=== PATIENT | male | born 1955 | race American Indian/Alaskan Native ===

== ENCOUNTER 2018-09-03 16:45 | Inpatient (IN) | payer MEDICARE ==
[2018-09-03] MEDS ORDERED: ASPIRIN PO ONE (16:55)
--- NOTE | 2018-09-03 16:58 | Emergency Department Report ---
Blank Doc - Documentation Documentation: 62 Y/O OBESE AA MALE WITH PMH OF HTN, CHF, CAD REPORTS 2+ WEEKS OF PROGRESSIVELY WORSENING WEIGHT GAIN AND SOB AND NOW CHEST ACHES.
[2018-09-03 17:38] LABS: Basophils # (Auto) 0.1 K/mm3 (0.0-0.1); Basophils % (Auto) 0.7 % (0.0-1.8); Eosinophils # (Auto) 0.1 K/mm3 (0.0-0.4); Eosinophils % (Auto) 0.7 % (0.0-4.3); Hematocrit 39.4 % (35.5-45.6); Lymphocytes # (Auto) 1.3 K/mm3 (1.2-5.4); Lymphocytes % (Auto) 12.3 % (13.4-35.0); Mean Corpuscular HGB Conc 33 % (32-34); Mean Corpuscular Volume 96 fl (84-94); Monocytes # (Auto) 0.6 K/mm3 (0.0-0.8); Monocytes % (Auto) 6.2 % (0.0-7.3); Platelet Count 196 K/mm3 (140-440); Red Blood Count 4.11 M/mm3 (3.65-5.03); Red Cell Distribution Width 14.4 % (13.2-15.2)
[2018-09-03 18:08] LABS: Alanine Aminotransferase 14 units/L (7-56); Albumin 3.2 g/dL (3.9-5); BUN/Creatinine Ratio 12; Blood Urea Nitrogen 11 mg/dL (9-20); Calcium 9.1 mg/dL (8.4-10.2); Hemolysis Index 33
--- NOTE | 2018-09-03 18:30 | XRay Report ---
PROCEDURE: XR CHEST ROUTINE 2V TECHNIQUE: PA and lateral chest HISTORY: Chest Pain COMPARISONS: None FINDINGS: Trachea midline. Prominent cardiomegaly. No pneumothorax. No sizable effusion. Mild vascular redistri bution. No acute airspace disease. No acute bony abnormality. IMPRESSION: Prominent cardiomegaly. Vascular redistribution. Findings compatible with mild pulmonary congestion No consolidation or sizable effusion. This document is electronically signed by Chato Salazar MD., Sep 03 2018 06:28:38 PM ET
[2018-09-03] MEDS ORDERED: NITROSTAT SL PRN (22:34)
[2018-09-03] MEDS ORDERED: TYLENOL PO ONE (22:34)
[2018-09-03] MEDS ORDERED: LASIX IV ONE (22:34)
--- NOTE | 2018-09-03 22:35 | Emergency Department Report ---
ED General Adult HPI - General Chief complaint: Dyspnea/Respdistress Stated complaint: SOB/CONGESTIVE HEART FAILURE Time Seen by Provider: 09/03/18 16:49 Source: patient, RN notes reviewed, old records reviewed Mode of arrival: Ambulatory Limitations: Physical Limitation - History of Present Illness Initial comments: Primary care Dr.: Dr. Lin Pulmonary: Dr Campa Past medical history: Morbid obesity, obstructive sleep apnea, hypertension, noncompliant with CPAP This is a 62-year-old gentleman. The patient presents to the emergency room with cough, shortness of breath, lower extremity swelling, malaise, fatigue, lack of energy. He endorses central chest wall pain with cough. The chest wall pain is present with cough, and it does not radiate to the back, arms or neck. He last had chest wall pain one week ago. His leg pain is bilateral and achy, constant, worsens with palpation and decreases with rest. He endorses a recent airplane trip to [place], less than 2 hours. His leg pain was present before this trip, and has not significantly changed after this trip. He denies recent surgeries. Intermittent compliance with outpatient medications. No recent cardiac stress test that he is aware of. -: Gradual Location: chest, left, right, upper extremity, lower extremity Consistency: intermittent Improves with: other (chest wall pain associated with cough. Decreases with rest. It increases with palpation. Leg pain bilateral. Increases with palpation, range of motion. Decreases with rest. Does not radiate anywhere.) - Related Data Home Medications Medication Instructions Recorded Confirmed Last Taken Carvedilol [Coreg] 12.5 mg PO BID 12/09/14 12/09/14 12/09/14 Furosemide [Lasix TAB] 40 mg PO QDAY 12/09/14 12/09/14 12/09/14 Valsartan/Hydrochlorothiazide 1 tab PO QDAY 12/09/14 12/09/14 12/09/14 [Diovan Hct 160-12.5 mg] Previous Rx's Medication Instructions Recorded Last Taken Type Docusate Sodium [Colace CAP] 100 mg PO BID PRN #20 capsule 12/10/14 Unknown Rx Famotidine [Pepcid] 10 mg PO BID #20 tablet 12/10/14 Unknown Rx Magnesium Citrate [Citrate of 300 ml PO NOW #1 bottle 12/10/14 Unknown Rx Magnesia] Allergies Allergy/AdvReac Type Severity Reaction Status Date / Time shellfish derived AdvReac Severe RESPIRATORY Verified 12/09/14 23:39 DISTRESS ED Review of Systems ROS: Stated complaint: SOB/CONGESTIVE HEART FAILURE Other details as noted in HPI Constitutional: malaise, weakness. denies: fever Eyes: denies: eye discharge ENT: congestion. denies: epistaxis Respiratory: cough, shortness of breath Cardiovascular: chest pain Gastrointestinal: denies: abdominal pain, nausea, vomiting Genitourinary: denies: dysuria Musculoskeletal: arthralgia, myalgia Skin: denies: lesions Neurological: weakness Psychiatric: anxiety ED Past Medical Hx - Past Medical History Previous Medical History?: Yes Hx Hypertension: Yes Hx Congestive Heart Failure: Yes Additional medical history: sleep apea (CPAP) - Surgical History Past Surgical History?: Yes Hx Coronary Stent: No Hx Open Heart Surgery: No Hx Pacemaker: No Hx Internal Defibrillator: No Hx Cholecystectomy: No Hx Appendectomy: No Hx Breast Surgery: No Additional Surgical History: Throat surgery, tonsilectomy - Social History Smoking Status: Never Smoker - Medications Home Medications: Home Medications Medication Instructions Recorded Confirmed Last Taken Type Carvedilol [Coreg] 12.5 mg PO BID 12/09/14 12/09/14 12/09/14 History Furosemide [Lasix TAB] 40 mg PO QDAY 12/09/14 12/09/14 12/09/14 History Valsartan/Hydrochlorothiazide 1 tab PO QDAY 12/09/14 12/09/14 12/09/14 History [Diovan Hct 160-12.5 mg] Docusate Sodium [Colace CAP] 100 mg PO BID PRN #20 capsule 12/10/14 Unknown Rx Famotidine [Pepcid] 10 mg PO BID #20 tablet 12/10/14 Unknown Rx Magnesium Citrate [Citrate of 300 ml PO NOW #1 bottle 12/10/14 Unknown Rx Magnesia] ED Physical Exam - General Limitations: Physical Limitation General appearance: alert, anxious, obese - Head Head exam: Present: atraumatic, normocephalic - Eye Eye exam: Present: normal appearance, EOMI. Absent: nystagmus - ENT ENT exam: Present: normal exam, normal orophraynx, mucous membranes moist, normal external ear exam - Neck Neck exam: Present: normal inspection, full ROM. Absent: tenderness, meningismus - Respiratory Respiratory exam: Present: chest wall tenderness, decreased breath sounds. Absent: respiratory distress, rales, rhonchi, stridor - Cardiovascular Cardiovascular Exam: Present: regular rate, normal rhythm, normal heart sounds. Absent: bradycardia, tachycardia, irregular rhythm, systolic murmur, diastolic murmur, rubs, gallop - GI/Abdominal GI/Abdominal exam: Present: soft. Absent: distended, tenderness, guarding, rebound, rigid, pulsatile mass - Rectal Rectal exam: Present: deferred - Extremities Exam Extremities exam: Present: normal inspection, full ROM, pedal edema, other (2+ pulses noted in the bilateral upper, lower extremities. Compartments soft. No long bony tenderness. The pelvis is stable.). Absent: calf tenderness - Back Exam Back exam: Present: normal inspection, full ROM. Absent: tenderness, CVA tenderness (R), paraspinal tenderness, vertebral tenderness - Neurological Exam Neurological exam: Present: alert, oriented X3, other (Extraocular movements intact. Tongue midline. No facial droop. Facial sensation intact to light touch in the V1, V2, V3 distribution bilaterally. 5 and 5 strength in 4 extremities.. Sensation is intact to light touch in 4 extremities.). Absent: motor sensory deficit - Psychiatric Psychiatric exam: Present: anxious - Skin Skin exam: Present: warm, dry, intact, normal color. Absent: rash ED Course Vital Signs 09/03/18 09/03/18 09/03/18 22:11 22:15 22:31 Pulse Rate 82 84 Respiratory 29 H 13 Rate Blood Pressure 132/76 132/76 132/76 O2 Sat by Pulse 94 95 96 Oximetry 09/03/18 09/03/18 22:45 23:01 Pulse Rate 74 Respiratory 20 Rate Blood Pressure 173/100 178/108 O2 Sat by Pulse 99 94 Oximetry ED Medical Decision Making - Lab Data Result diagrams: 09/03/18 17:26 09/03/18 17:07 - EKG Data -: EKG Interpreted by Wa - EKG Data 09/03/18 23:45 EKG shows a sinus rhythm, 78 bpm, normal axis, QTC prolonged, low voltage, motion artifact, immature atrial contractions, abdominal EKG, not consistent with ST elevation myocardial infarction, appears grossly unchanged from prior EKG from 04/01/2010 - Radiology Data Radiology results: report reviewed X-ray of the chest shows pulmonary vascular congestion, enlarged cardiac silhouette - Medical Decision Making Differential diagnosis, including not limited to: Obstructive sleep apnea, pulmonary hypertension, obesity hypoventilation syndrome, right-sided heart failure, costochondritis, GERD, gastritis, pneumonia, acute coronary syndrome Assessment and plan: 62-year-old morbidly obese gentleman, found to be hypoxic on room air, saturating 87, 88%, significant work of breathing, lower extremity edema, x-ray of the chest suggesting congestive heart failure, suspect worsening right-sided heart failure, likely secondary to multiple factors, including CPAP noncompliance and morbid obesity. Extensive discussion had with the patient and family. I have recommended compliance with CPAP, diet and lifestyle modifications and aggressive weight loss. Given his work of breathing and hypoxia, as well as objective evidence of right-sided heart failure and fluid overload, we will admit to the medical service for diuresis, medical optimization, and supplemental oxygen. The hospital physician, Dr. Lane has accepted the patient to the medical service. Critical care attestation.: If time is entered above; I have spent that time in minutes in the direct care of this critically ill patient, excluding procedure time. ED Disposition Clinical Impression: Right-sided heart failure, Shortness of breath, Chest wall pain, Morbid obesity, Noncompliance with CPAP treatment Disposition: -09 OP ADMIT IP TO THIS HOSP Is pt being admited?: Yes Condition: Fair Instructions: Chest Pain (ED) Referrals: PRIMARY CARE, [Primary Care Provider] - 3-5 Days
--- NOTE | 2018-09-03 23:49 | History and Physical Report ---
<RICKEY IZQUIERDO - Last Filed: 09/04/18 02:38> History of Present Illness Date of examination: 09/04/18 Date of admission: 09/04/2018 Chief complaint: Shortness of breath, cough for 2 months History of present illness: Patient is a 62-year-old male with PMHx of CHF, kidney disease, obstructive sleep apnea, hypertension, morbid obesity who presents to the ER with complaints of cough, shortness of breath and leg swelling. Patient states that the symptoms has been going on for the past 2 months, and kept getting worse, he has not been taking his BP meds because he was taking losartan which he heard can cause malignancy, he is afraid to take it and he has not seen his PCP. Patient said that the he had an appointment to see his taxation inspector next week but he decided to come to the ER today because the shortness of breath and the swelling got worse, he continues to cough and has a lot of difficulty breathing. Patient also reports shortness of breath on exertion, leg pain and swelling, palpation, he denies chest pain, denies headache, denies dizziness. Pt had a chest xray that showed cardiomegaly and mild pulmonary congestion, he is admitted for further evaluation and treatment. Past History Past Medical History: heart failure, hypertension, renal failure Past Surgical History: No surgical history Social history: no significant social history, lives with family Family history: no significant family history Medications and Allergies Allergies Allergy/AdvReac Type Severity Reaction Status Date / Time shellfish derived AdvReac Severe RESPIRATORY Verified 12/09/14 23:39 DISTRESS seafood Allergy Severe Angioedema Uncoded 09/04/18 00:15 Home Medications Medication Instructions Recorded Confirmed Last Taken Type Furosemide [Lasix TAB] 40 mg PO BID 12/09/14 09/04/18 12/09/14 History Active Meds: Active Medications Enoxaparin Sodium (Lovenox) 40 mg SUB-Q QDAY [facility] Nitroglycerin (Nitrostat) 0.4 mg SL .Q5MIN PRN PRN Reason: Chest Pain Review of Systems Cardiovascular: orthopnea, shortness of breath, leg edema Respiratory: cough, shortness of breath, sleep apnea Exam - Constitutional Vitals: Temp Pulse Resp BP Pulse Ox 74 20 178/108 94 09/03/18 22:45 09/03/18 22:45 09/03/18 23:01 09/03/18 23:01 General appearance: Present: mild distress - EENT Eyes: Present: EOM intact ENT: hearing intact - Neck Neck: Present: supple, normal ROM - Respiratory Respiratory effort: labored Respiratory: bilateral: diminished - Cardiovascular Rhythm: regular Heart Sounds: Present: S1 & S2 - Extremities Extremity abnormal: edema Peripheral Pulses: within normal limits - Abdominal General gastrointestinal: Present: non-tender Male genitourinary: Present: deferred - Rectal Rectal Exam: deferred - Integumentary Integumentary: Present: warm, dry - Musculoskeletal Musculoskeletal: strength equal bilaterally - Psychiatric Psychiatric: cooperative - Neurologic Neurologic: moves all extremities Results - Labs CBC & Chem 7: 09/03/18 17:26 09/04/18 01:09 Labs: Laboratory Last Values WBC 10.2 K/mm3 (4.5-11.0) 09/03/18 17:26 RBC 4.11 M/mm3 (3.65-5.03) 09/03/18 17:26 Hgb 13.0 gm/dl (11.8-15.2) 09/03/18 17:26 Hct 39.4 % (35.5-45.6) 09/03/18 17:26 MCV 96 fl (84-94) H 09/03/18 17:26 MCH 32 pg (28-32) 09/03/18 17:26 MCHC 33 % (32-34) 09/03/18 17:26 RDW 14.4 % (13.2-15.2) 09/03/18 17:26 Plt Count 196 K/mm3 (140-440) 09/03/18 17:26 Lymph % (Auto) 12.3 % (13.4-35.0) L 09/03/18 17:26 [place] % (Auto) 6.2 % (0.0-7.3) 09/03/18 17:26 Eos % (Auto) 0.7 % (0.0-4.3) 09/03/18 17:26 Baso % (Auto) 0.7 % (0.0-1.8) 09/03/18 17:26 Lymph # 1.3 K/mm3 (1.2-5.4) 09/03/18 17:26 [place] # 0.6 K/mm3 (0.0-0.8) 09/03/18 17:26 Eos # 0.1 K/mm3 (0.0-0.4) 09/03/18 17:26 Baso # 0.1 K/mm3 (0.0-0.1) 09/03/18 17:26 Seg Neutrophils % 80.1 % (40.0-70.0) H 09/03/18 17:26 Seg Neutrophils # 8.2 K/mm3 (1.8-7.7) H 09/03/18 17:26 Sodium 143 mmol/L (137-145) 09/03/18 17:07 Potassium 4.0 mmol/L (3.6-5.0) 09/03/18 17:07 Chloride 102.9 mmol/L (98-107) 09/03/18 17:07 Carbon Dioxide 28 mmol/L (22-30) 09/03/18 17:07 Anion Gap 16 mmol/L 09/03/18 17:07 BUN 11 mg/dL (9-20) 09/03/18 17:07 Creatinine 0.9 mg/dL (0.8-1.5) 09/03/18 17:07 Estimated GFR > 60 ml/min 09/03/18 17:07 BUN/Creatinine Ratio 12 % 09/03/18 17:07 Glucose 96 mg/dL (75-100) 09/03/18 17:07 Calcium 9.1 mg/dL (8.4-10.2) 09/03/18 17:07 Total Bilirubin 0.20 mg/dL (0.1-1.2) 09/03/18 17:07 AST 17 units/L (5-40) 09/03/18 17:07 ALT 14 units/L (7-56) 09/03/18 17:07 Alkaline Phosphatase 107 units/L (35-129) 09/03/18 17:07 Troponin T < 0.010 ng/mL (0.00-0.029) 09/03/18 19:31 NT-Pro-B Natriuret Pep 251.4 pg/mL (0-900) 09/03/18 17:07 Total Protein 7.5 g/dL (6.3-8.2) 09/03/18 17:07 Albumin 3.2 g/dL (3.9-5) L 09/03/18 17:07 Albumin/Globulin Ratio 0.7 % 09/03/18 17:07 Assessment and Plan Assessment and plan: 1. CHF with acute exacerbation (EF unknown) 2. Acute dyspnea 3. HTN (BP stable) 4. Kidney disease 5. Morbid Obesity Plan: Pt is admitted to [facility] for CHF exacerbation Consult cardiology for management Echocardiogram Lasix 40 twice a day for CHF Daily weight, fluid restriction Cough supressent with tessalon perle CHF core measures with ASP, Beta gabriel, Lasix, statin Resume home meds Plan of care was d/w pt, voiced understanding Pt's condition and plan of care of care discussed Dr. Lane Advance Directives: Yes VTE prophylaxis?: Chemical Plan of care discussed with patient/family: Yes <SILVESTRE LANE - Last Filed: 09/04/18 05:02> History of Present Illness Date of admission: 09/03/18 23:25 Medications and Allergies Active Meds: Active Medications Aspirin (Baby Aspirin) 81 mg PO QDAY [facility] Enoxaparin Sodium (Lovenox) 40 mg SUB-Q QDAY [facility] Furosemide (Lasix) 40 mg IV Q12HR [facility] Stop: 09/05/18 22:01 Hydralazine HCl (Apresoline) 10 mg IV Q4H PRN PRN Reason: Hypertension Lisinopril (Zestril) 2.5 mg PO QDAY [facility] Metoprolol Tartrate (Lopressor) 25 mg PO BID@0800,1700 [facility] Nitroglycerin (Nitrostat) 0.4 mg SL .Q5MIN PRN PRN Reason: Chest Pain Exam - Constitutional Vitals: Temp Pulse Resp BP Pulse Ox 98.2 F 67 19 160/86 94 09/04/18 01:17 09/04/18 01:17 09/04/18 01:17 09/04/18 01:17 09/04/18 01:17 Results - Labs CBC & Chem 7: 09/03/18 17:26 09/04/18 01:09 Labs: Laboratory Last Values WBC 10.2 K/mm3 (4.5-11.0) 09/03/18 17:26 RBC 4.11 M/mm3 (3.65-5.03) 09/03/18 17:26 Hgb 13.0 gm/dl (11.8-15.2) 09/03/18 17:26 Hct 39.4 % (35.5-45.6) 09/03/18 17:26 MCV 96 fl (84-94) H 09/03/18 17:26 MCH 32 pg (28-32) 09/03/18 17:26 MCHC 33 % (32-34) 09/03/18 17:26 RDW 14.4 % (13.2-15.2) 09/03/18 17:26 Plt Count 196 K/mm3 (140-440) 09/03/18 17:26 Lymph % (Auto) 12.3 % (13.4-35.0) L 09/03/18 17:26 [place] % (Auto) 6.2 % (0.0-7.3) 09/03/18 17:26 Eos % (Auto) 0.7 % (0.0-4.3) 09/03/18 17:26 Baso % (Auto) 0.7 % (0.0-1.8) 09/03/18 17:26 Lymph # 1.3 K/mm3 (1.2-5.4) 09/03/18 17:26 [place] # 0.6 K/mm3 (0.0-0.8) 09/03/18 17:26 Eos # 0.1 K/mm3 (0.0-0.4) 09/03/18 17:26 Baso # 0.1 K/mm3 (0.0-0.1) 09/03/18 17:26 Seg Neutrophils % 80.1 % (40.0-70.0) H 09/03/18 17:26 Seg Neutrophils # 8.2 K/mm3 (1.8-7.7) H 09/03/18 17:26 Sodium 143 mmol/L (137-145) 09/04/18 01:09 Potassium 3.6 mmol/L (3.6-5.0) 09/04/18 01:09 Chloride 102.8 mmol/L (98-107) 09/04/18 01:09 Carbon Dioxide 26 mmol/L (22-30) 09/04/18 01:09 Anion Gap 18 mmol/L 09/04/18 01:09 BUN 11 mg/dL (9-20) 09/04/18 01:09 Creatinine 0.9 mg/dL (0.8-1.5) 09/04/18 01:09 Estimated GFR > 60 ml/min 09/04/18 01:09 BUN/Creatinine Ratio 12 % 09/04/18 01:09 Glucose 100 mg/dL (75-100) 09/04/18 01:09 POC Glucose 90 (70-105) 09/04/18 00:06 Calcium 9.2 mg/dL (8.4-10.2) 09/04/18 01:09 Magnesium 1.90 mg/dL (1.7-2.3) 09/04/18 01:09 Total Bilirubin 0.20 mg/dL (0.1-1.2) 09/03/18 17:07 AST 17 units/L (5-40) 09/03/18 17:07 ALT 14 units/L (7-56) 09/03/18 17:07 Alkaline Phosphatase 107 units/L (35-129) 09/03/18 17:07 Troponin T < 0.010 ng/mL (0.00-0.029) 09/03/18 19:31 NT-Pro-B Natriuret Pep 251.4 pg/mL (0-900) 09/03/18 17:07 Total Protein 7.5 g/dL (6.3-8.2) 09/03/18 17:07 Albumin 3.2 g/dL (3.9-5) L 09/03/18 17:07 Albumin/Globulin Ratio 0.7 % 09/03/18 17:07 Assessment and Plan Assessment and plan: This is a 62-year-old male with a history of CHF, hypertension, GERD, sleep apnea, morbid obesity diverticulitis was been having shortness of breath times approximately 2 months. He also complained of nonproductive cough that occurs when he eat, he sometimes feels that the food is getting stuck 2 months, he also cough when drinking water. The patient states that he also gets chest pain when he feels like food is getting stuck, he also gets chest pain not related to food sometimes. Patient is in the left substernal area, sharp lasted for a few seconds, he is not sure if it radiates. He just came back from a trip from [place]. Agree with plan as discussed above for CHF management, also start REBECCA inhibitor. Check d-dimer, consult GI for dysphagia
[2018-09-04] MEDS ORDERED: APRESOLINE IV ONE (00:07)
[2018-09-04] MEDS ORDERED: APRESOLINE ONE (00:12)
[2018-09-04 02:07] LABS: BUN/Creatinine Ratio 12; Blood Urea Nitrogen 11 mg/dL (9-20); Calcium 9.2 mg/dL (8.4-10.2); Hemolysis Index 4
[2018-09-04] MEDS: APRESOLINE IV PRN (05:27)
[2018-09-04] MEDS: LOPRESSOR PO SCH ×2 (08:35→18:16)
[2018-09-04] MEDS: LASIX IV SCH ×3 (09:47→23:12)
[2018-09-04] MEDS: LOVENOX SUB-Q SCH (09:48)
[2018-09-04] MEDS: ZESTRIL PO SCH (09:48)
[2018-09-04] MEDS: BABY ASPIRIN PO SCH (09:48)
[2018-09-04] MEDS ORDERED: K-DUR PO SCH (10:00)
[2018-09-04] MEDS ORDERED: APRESOLINE PO SCH (10:00)
[2018-09-04] MEDS ORDERED: ALDACTONE PO SCH (10:00)
--- NOTE | 2018-09-04 13:15 | Consultation ---
History of Present Illness Consult date: 09/04/18 Consult reason: congestive heart failure History of present illness: The patient is a 62-year-old man with multiple medical problems. He is massively obese, weighs over 370 pounds. He has obstructive sleep apnea, on home CPAP. He also describes a history of "CHF", which is managed by his outpatient assistant auditor in [place]. He describes 2 cardiac catheterizations within the past several years, which reported no significant coronary artery disease. However he is unable to articulate his left ventricular ejection fraction percentage. He presents to the hospital at this time with shortness of breath, cough, lower extremity edema and increase in abdominal girth. There was no chest pain, no palpitations and no syncope. EKG is a sinus arrhythmia, with poor R-wave progression, otherwise normal ECG. Chest x-ray reports mild interstitial edema. Cardiac consultation was requested for further assessment. Past History Past Medical History: heart failure, hypertension, renal failure Past Surgical History: No surgical history Social history: no significant social history, lives with family Family history: no significant family history Medications and Allergies Allergies Allergy/AdvReac Type Severity Reaction Status Date / Time shellfish derived AdvReac Severe RESPIRATORY Verified 12/09/14 23:39 DISTRESS seafood Allergy Severe Angioedema Uncoded 09/04/18 00:15 Home Medications Medication Instructions Recorded Confirmed Last Taken Type Furosemide [Lasix TAB] 40 mg PO BID 12/09/14 09/04/18 12/09/14 History Active Meds: Active Medications Aspirin (Baby Aspirin) 81 mg PO QDAY [facility] Last Admin: 09/04/18 09:48 Dose: 81 mg Documented by: Enoxaparin Sodium (Lovenox) 40 mg SUB-Q QDAY [facility] Last Admin: 09/04/18 09:48 Dose: 40 mg Documented by: Furosemide (Lasix) 40 mg IV Q12HR [facility] Stop: 09/05/18 22:01 Last Admin: 09/04/18 09:47 Dose: 40 mg Documented by: Hydralazine HCl (Apresoline) 10 mg IV Q4H PRN PRN Reason: Hypertension Last Admin: 09/04/18 05:27 Dose: 10 mg Documented by: Lisinopril (Zestril) 2.5 mg PO QDAY [facility] Last Admin: 09/04/18 09:48 Dose: 2.5 mg Documented by: Metoprolol Tartrate (Lopressor) 25 mg PO BID@0800,1700 [facility] Last Admin: 09/04/18 08:35 Dose: 25 mg Documented by: Nitroglycerin (Nitrostat) 0.4 mg SL .Q5MIN PRN PRN Reason: Chest Pain Review of Systems Cardiovascular: orthopnea, edema, shortness of breath, no chest pain, no palpitations, no rapid/irregular heart beat, no syncope, no lightheadedness Physical Examination Vital Signs Pulse Resp BP Pulse Ox 82 29 H 132/76 94 09/03/18 22:11 09/03/18 22:11 09/03/18 22:11 09/03/18 22:11 General appearance: no acute distress HEENT: Positive: PERRL Neck: Positive: neck supple Cardiac: Positive: Reg Rate and Rhythm Lungs: Positive: clear to auscultation Neuro: Positive: Grossly Intact Abdomen: Positive: Soft Male genitourinary: Positive: deferred Skin: Positive: Clear Extremities: Present: +1 Edema Results 09/03/18 17:26 09/04/18 01:09 Cardiac Enzymes 09/03/18 Range/Units 17:07 AST 17 (5-40) units/L CBC 09/03/18 Range/Units 17:26 WBC 10.2 (4.5-11.0) K/mm3 RBC 4.11 (3.65-5.03) M/mm3 Hgb 13.0 (11.8-15.2) gm/dl Hct 39.4 (35.5-45.6) % Plt Count 196 (140-440) K/mm3 Lymph # 1.3 (1.2-5.4) K/mm3 [place] # 0.6 (0.0-0.8) K/mm3 Eos # 0.1 (0.0-0.4) K/mm3 Baso # 0.1 (0.0-0.1) K/mm3 Comprehensive Metabolic Panel 09/03/18 09/04/18 Range/Units 17:07 01:09 Sodium 143 143 (137-145) mmol/L Potassium 4.0 3.6 (3.6-5.0) mmol/L Chloride 102.9 102.8 (98-107) mmol/L Carbon Dioxide 28 26 (22-30) mmol/L BUN 11 11 (9-20) mg/dL Creatinine 0.9 0.9 (0.8-1.5) mg/dL Glucose 96 100 (75-100) mg/dL Calcium 9.1 9.2 (8.4-10.2) mg/dL AST 17 (5-40) units/L ALT 14 (7-56) units/L Alkaline Phosphatase 107 (35-129) units/L Total Protein 7.5 (6.3-8.2) g/dL Albumin 3.2 L (3.9-5) g/dL EKG interpretations - Telemetry EKG Rhythm: Sinus Rhythm Assessment and Plan - Patient Problems (1) Congestive heart failure Current Visit: Yes Status: Acute Plan to address problem: Patient presents with shortness of breath and x-ray evidence of mild interstitial edema. Following diuresis, his lungs are now clear. We will continue medical therapy including diuretics, and obtain echocardiogram for left ventricular function assessment. In addition, will request his records from [facility] with regards to previous left ventricular function assessment and previous coronary assessments. (2) Sleep apnea Current Visit: Yes Status: Acute Plan to address problem: The patient has massive obesity, and history of obstructive sleep apnea. He is poorly compliant with his home CPAP. I suspect that some of his shortness of breath is due to his sleep apnea, we recommend pulmonary consultation and further assessment of options for managing his up obstructive sleep apnea.
--- NOTE | 2018-09-04 13:40 | Progress Note ---
Assessment and Plan - Patient Problems (1) Cough Current Visit: Yes Status: Acute Plan to address problem: Patient with cough after eating. Chronic. Possibilities include induced by GERD versus REBECCA inhibitor. We'll start patient on PPI empirically. If patient's fine not to have congestive heart failure may consider discontinuing REBECCA inhibitor. (2) Congestive heart failure Current Visit: Yes Status: Acute Plan to address problem: Patient has symptoms of CHF including shortness of breath lower extremity edema. Echocardiogram pending cardiology following. I'll continue diuresis and REBECCA inhibitor. Beta gabriel. May consider changing to Coreg if diagnosis established. (3) Morbid obesity Current Visit: Yes Status: Acute Plan to address problem: Patient grossly obese. I think obstructive sleep apnea and obesity H syndrome of playing a large role in patient's fatigue and condition. Educational weight loss dietary options. Verbalized understanding. (4) Noncompliance with CPAP treatment Current Visit: Yes Status: Acute (5) Shortness of breath Current Visit: Yes Status: Acute History Interval history: Patient today sitting up in chair. Complains of a chronic cough every time he eats for 2 weeks. States he feels somewhat better than yesterday. Patient diuresed over p.m. Chest x-ray showed mild interstitial pattern. Hospitalist Physical - Constitutional Vitals: Temp Pulse Resp BP Pulse Ox 98.6 F 67 20 158/91 100 09/04/18 08:07 09/04/18 10:00 09/04/18 08:07 09/04/18 08:07 09/04/18 08:07 General appearance: Present: no acute distress, obese - EENT Eyes: Present: PERRL, EOM intact ENT: hearing intact, clear oral mucosa, dentition normal, no oropharyngeal erythema, no poor dentition, no thrush - Neck Neck: Present: supple, normal ROM - Respiratory Respiratory effort: normal Respiratory: negative: other (decreased air entry echo due to most likely obesity. Patient morbidly obese unable to get good air entry.) - Cardiovascular Rhythm: regular Heart Sounds: Present: S1 & S2 - Extremities Extremities: no ischemia, pulses intact, pulses symmetrical, normal temperature, Full ROM Extremity abnormal: edema, other (+3 pitting edema.) Peripheral Pulses: within normal limits - Abdominal General gastrointestinal: soft, non-tender, non-distended, normal bowel sounds, no hepatomegaly, no splenomegaly, no mass - Integumentary Integumentary: Present: clear, warm, dry - Psychiatric Psychiatric: appropriate mood/affect, intact judgment & insight, memory intact - Neurologic Neurologic: CNII-XII intact, focal deficits, moves all extremities Results - Labs CBC & Chem 7: 09/03/18 17:26 09/04/18 01:09 Labs: Laboratory Last Values WBC 10.2 K/mm3 (4.5-11.0) 09/03/18 17: RBC 4.11 M/mm3 (3.65-5.03) 09/03/18 17:26 Hgb 13.0 gm/dl (11.8-15.2) 09/03/18 17: Hct 39.4 % (35.5-45.6) 09/03/18 17: MCV 96 fl (84-94) H 09/03/18 17:26 MCH 32 pg (28-32) 09/03/18 17: MCHC 33 % (32-34) 09/03/18 17: RDW 14.4 % (13.2-15.2) 09/03/18 17: Plt Count 196 K/mm3 (140-440) 09/03/18 17:26 Lymph % (Auto) 12.3 % (13.4-35.0) L 09/03/18 17: Marion % (Auto) 6.2 % (0.0-7.3) 09/03/18 17: Eos % (Auto) 0.7 % (0.0-4.3) 09/03/18 17: Baso % (Auto) 0.7 % (0.0-1.8) 09/03/18 17:26 Lymph # 1.3 K/mm3 (1.2-5.4) 09/03/18 17:26 Marion # 0.6 K/mm3 (0.0-0.8) 09/03/18 17:26 Eos # 0.1 K/mm3 (0.0-0.4) 09/03/18 17:26 Baso # 0.1 K/mm3 (0.0-0.1) 09/03/18 17:26 Seg Neutrophils % 80.1 % (40.0-70.0) H 09/03/18 17:26 Seg Neutrophils # 8.2 K/mm3 (1.8-7.7) H 09/03/18 17:26 D-Dimer 447.59 ng/mlDDU (0-234) H 09/04/18 05:38 Sodium 143 mmol/L (137-145) 09/04/18 01:09 Potassium 3.6 mmol/L (3.6-5.0) 09/04/18 01:09 Chloride 102.8 mmol/L (98-107) 09/04/18 01:09 Carbon Dioxide 26 mmol/L (22-30) 09/04/18 01:09 Anion Gap 18 mmol/L 09/04/18 01:09 BUN 11 mg/dL (9-20) 09/04/18 01:09 Creatinine 0.9 mg/dL (0.8-1.5) 09/04/18 01:09 Estimated GFR > 60 ml/min 09/04/18 01:09 BUN/Creatinine Ratio 12 % 09/04/18 01:09 Glucose 100 mg/dL (75-100) 09/04/18 01:09 POC Glucose 90 (70-105) 09/04/18 00:06 Calcium 9.2 mg/dL (8.4-10.2) 09/04/18 01:09 Magnesium 1.90 mg/dL (1.7-2.3) 09/04/18 01:09 Total Bilirubin 0.20 mg/dL (0.1-1.2) 09/03/18 17:07 AST 17 units/L (5-40) 09/03/18 17:07 ALT 14 units/L (7-56) 09/03/18 17:07 Alkaline Phosphatase 107 units/L (35-129) 09/03/18 17:07 Troponin T < 0.010 ng/mL (0.00-0.029) 09/03/18 19:31 NT-Pro-B Natriuret Pep 251.4 pg/mL (0-900) 09/03/18 17:07 Total Protein 7.5 g/dL (6.3-8.2) 09/03/18 17:07 Albumin 3.2 g/dL (3.9-5) L 09/03/18 17:07 Albumin/Globulin Ratio 0.7 % 09/03/18 17:07 Active Medications - Current Medications Current Medications: Generic Name Dose Route Start Last Admin Trade Name Freq PRN Reason Stop Dose Admin Aspirin 81 mg 09/04/18 10:00 09/04/18 09:48 Baby Aspirin PO 81 mg QDAY GUZMAN Administration Enoxaparin Sodium 40 mg 09/04/18 10:00 09/04/18 09:48 Lovenox SUB-Q 40 mg QDAY GUZMAN Administration Furosemide 40 mg 09/04/18 10:00 09/04/18 09:47 Lasix IV 09/05/18 22:01 40 mg Q12HR GUZMAN Administration Hydralazine HCl 10 mg 09/04/18 01:00 09/04/18 05:27 Apresoline IV 10 mg Q4H PRN Administration Hypertension Lisinopril 2.5 mg 09/04/18 10:00 09/04/18 09:48 Zestril PO 2.5 mg QDAY GUZMAN Administration Metoprolol Tartrate 25 mg 09/04/18 08:00 09/04/18 08:35 Lopressor PO 25 mg BID@0800,1700 GUZMAN Administration Nitroglycerin 0.4 mg 09/03/18 22:34 Nitrostat SL .Q5MIN PRN Chest Pain Nutrition/Malnutrition Assess - Attestation Statement I have reviewed and agreed w/ Malnutrition eval & tx plan: Yes
[2018-09-04] MEDS: PROTONIX PO SCH (15:01)
[2018-09-04] MEDS: PHENERGAN/CODEINE 6.25-10 MG/5ML PO PRN (18:16)
[2018-09-05] MEDS: APRESOLINE IV PRN (03:24)
[2018-09-05] MEDS: PROTONIX PO SCH (09:10)
[2018-09-05] MEDS: BABY ASPIRIN PO SCH (09:10)
[2018-09-05] MEDS: LASIX IV SCH ×2 (09:11→21:11)
[2018-09-05] MEDS: LOPRESSOR PO SCH ×2 (09:11→17:59)
[2018-09-05] MEDS: ZESTRIL PO SCH (09:11)
[2018-09-05] MEDS: LOVENOX SUB-Q SCH (09:12)
--- NOTE | 2018-09-05 11:34 | Vascular Lab Report ---
PROCEDURE: VL VENOUS DUPLEX LE BILAT TECHNIQUE: Duplex Doppler ultrasound examination of the venous system of the right leg and left leg HISTORY: elevated d-dimer COMPARISONS: None FINDINGS: RIGHT LEG: Normal compressibility, vascular patency, and augmentation are present diffusely throughout the visua lized portion of the deep veins. No abnormal intraluminal echoes are visualized to suggest deep vein thrombus. IMPRESSION: No ultrasound evidence of DVT in the right leg LEFT LEG: Normal compressibility, vascular patency, and augmentation are present diffusely throughout the visua lized portion of the deep veins. No abnormal intraluminal echoes are visualized to suggest deep vein thrombus. IMPRESSION: No ultrasound evidence of DVT in the left leg This document is electronically signed by Estuardo Beltran MD., Sep 05 2018 11:32:37 AM ET
--- NOTE | 2018-09-05 12:22 | Progress Note ---
Assessment and Plan Chronic Diastolic heart failure EF 60-65% by echo this admission Morbidly obese Obstructive sleep apnea on home CPAP Diabetes Hypertension Continue medical management for chronic diastolic heart failure. Subjective Date of service: 09/05/18 Interval history: No cardiac events reported overnight. Objective Vital Signs Temp Pulse Pulse Pulse Pulse Resp BP 09/05/18 12:05 98.2 F 64 20 146/91 09/05/18 10:00 78 78 78 19 09/05/18 09:11 78 187/109 09/05/18 09:02 98.4 F 78 20 187/109 09/05/18 08:12 09/05/18 03:37 64 19 09/05/18 02:57 98.2 F 16 192/97 09/04/18 22:50 97.8 F 63 18 115/61 09/04/18 22:12 09/04/18 22:00 81 18 09/04/18 19:49 97.8 F 69 20 178/90 09/04/18 16:41 98.7 F 20 149/90 Pulse Ox 09/05/18 12:05 99 09/05/18 10:00 99 09/05/18 09:11 09/05/18 09:02 99 09/05/18 08:12 96 09/05/18 03:37 96 09/05/18 02:57 09/04/18 22:50 94 09/04/18 22:12 100 09/04/18 22:00 09/04/18 19:49 99 09/04/18 16:41 - Physical Examination General: No Apparent Distress, Other (obese) HEENT: Positive: PERRL Cardiac: Positive: Reg Rate and Rhythm Neuro: Positive: Grossly Intact Extremities: Present: +1 Edema
--- NOTE | 2018-09-05 16:36 | Progress Note ---
Assessment and Plan Assessment and plan: Acute resp failure due to CHF exacerbation supplemental Oxygen consult Pulm Acute on chronic diastolic CHF Lasix cardiology following Morbid obesity counseled on importnace of losing weight sleep apnea. uses CPAP at home Pulm consulted Elevated d-dimer. To get CTA Chest to r/o PE Full code status History Interval history: Less shortness of breath Cough Hospitalist Physical - Physical exam Narrative exam: Gen: Not in acute distress, morbidly obese, HEENT: Normocephalic, atraumatic Neck: supple, no JVD Heart: S1 and S2 reg, no murmurs, rubs or gallop Lungs: Decreased breath sounds bilaterally,bilat basal crackles, no wheezing Abd: soft, non tender, non distended, normal bowel sounds Ext: No edema, no clubbing, no cyanosis, Neuro: AAO x 3, moves all ext - Constitutional Vitals: Temp Pulse Resp BP Pulse Ox 98.0 F 58 L 18 106/49 100 09/05/18 16:03 09/05/18 16:03 09/05/18 16:03 09/05/18 16:03 09/05/18 16:03 General appearance: Present: no acute distress, obese Results - Labs CBC & Chem 7: 09/03/18 17:26 09/04/18 01:09 Labs: Laboratory Last Values WBC 10.2 K/mm3 (4.5-11.0) 09/03/18 17:26 RBC 4.11 M/mm3 (3.65-5.03) 09/03/18 17:26 Hgb 13.0 gm/dl (11.8-15.2) 09/03/18 17:26 Hct 39.4 % (35.5-45.6) 09/03/18 17:26 MCV 96 fl (84-94) H 09/03/18 17:26 MCH 32 pg (28-32) 09/03/18 17:26 MCHC 33 % (32-34) 09/03/18 17:26 RDW 14.4 % (13.2-15.2) 09/03/18 17:26 Plt Count 196 K/mm3 (140-440) 09/03/18 17:26 Lymph % (Auto) 12.3 % (13.4-35.0) L 09/03/18 17:26 Benson % (Auto) 6.2 % (0.0-7.3) 09/03/18 17:26 Eos % (Auto) 0.7 % (0.0-4.3) 09/03/18 17:26 Baso % (Auto) 0.7 % (0.0-1.8) 09/03/18 17:26 Lymph # 1.3 K/mm3 (1.2-5.4) 09/03/18 17:26 Benson # 0.6 K/mm3 (0.0-0.8) 09/03/18 17:26 Eos # 0.1 K/mm3 (0.0-0.4) 09/03/18 17:26 Baso # 0.1 K/mm3 (0.0-0.1) 09/03/18 17:26 Seg Neutrophils % 80.1 % (40.0-70.0) H 09/03/18 17:26 Seg Neutrophils # 8.2 K/mm3 (1.8-7.7) H 09/03/18 17:26 447.59 ng/mlDDU (0-234) H 09/04/18 05:38 Sodium 143 mmol/L (137-145) 09/04/18 01:09 Potassium 3.6 mmol/L (3.6-5.0) 09/04/18 01:09 Chloride 102.8 mmol/L (98-107) 09/04/18 01:09 Carbon Dioxide 26 mmol/L (22-30) 09/04/18 01:09 18 mmol/L 09/04/18 01:09 BUN 11 mg/dL (9-20) 09/04/18 01:09 0.9 mg/dL (0.8-1.5) 09/04/18 01:09 Estimated GFR > 60 ml/min 09/04/18 01:09 12 % 09/04/18 01:09 Glucose 100 mg/dL (75-100) 09/04/18 01:09 POC Glucose 90 (70-105) 09/04/18 00:06 Calcium 9.2 mg/dL (8.4-10.2) 09/04/18 01:09 Magnesium 1.90 mg/dL (1.7-2.3) 09/04/18 01:09 0.20 mg/dL (0.1-1.2) 09/03/18 17:07 AST 17 units/L (5-40) 09/03/18 17:07 ALT 14 units/L (7-56) 09/03/18 17:07 107 units/L (35-129) 09/03/18 17:07 < 0.010 ng/mL (0.00-0.029) 09/03/18 19:31 NT-Pro-B Natriuret Pep 251.4 pg/mL (0-900) 09/03/18 17:07 7.5 g/dL (6.3-8.2) 09/03/18 17:07 3.2 g/dL (3.9-5) L 09/03/18 17:07 0.7 % 09/03/18 17:07 Active Medications - Current Medications Current Medications: Generic Name Dose Route Start Last Admin Trade Name Freq PRN Reason Stop Dose Admin Aspirin 81 mg 09/04/18 10:00 09/05/18 09:10 Baby Aspirin PO 81 mg QDAY GUZMAN Administration Enoxaparin Sodium 40 mg 09/04/18 10:00 09/05/18 09:12 Lovenox SUB-Q 40 mg QDAY GUZMAN Administration Furosemide 40 mg 09/04/18 10:00 09/05/18 09:11 Lasix IV 09/05/18 22:01 40 mg Q12HR GUZMAN Administration Hydralazine HCl 10 mg 09/04/18 01:00 09/05/18 03:24 Apresoline IV 10 mg Q4H PRN Administration Hypertension Lisinopril 2.5 mg 09/04/18 10:00 09/05/18 09:11 Zestril PO 2.5 mg QDAY GUZMAN Administration Metoprolol Tartrate 25 mg 09/04/18 08:00 09/05/18 09:11 Lopressor PO 25 mg BID@0800,1700 GUZMAN Administration Nitroglycerin 0.4 mg 09/03/18 22:34 Nitrostat SL .Q5MIN PRN Chest Pain Pantoprazole Sodium 40 mg 09/04/18 14:00 09/05/18 09:10 Protonix PO 40 mg QDAY GUZMAN Administration Promethazine HCl/Codeine 5 ml 09/04/18 17:00 09/04/18 18:16 Phenergan/Codeine 6.25-10 Mg/5ml PO 5 ml Q12HR PRN Administration Cough
[2018-09-05] MEDS: PHENERGAN/CODEINE 6.25-10 MG/5ML PO PRN (18:18)
[2018-09-06] MEDS: LOPRESSOR PO SCH ×2 (08:32→17:24)
[2018-09-06] MEDS: PHENERGAN/CODEINE 6.25-10 MG/5ML PO PRN ×2 (09:11→18:02)
[2018-09-06] MEDS ORDERED: LASIX PO SCH (10:00)
[2018-09-06] MEDS: BABY ASPIRIN PO SCH (10:15)
[2018-09-06] MEDS: PROTONIX PO SCH (10:15)
[2018-09-06] MEDS: LOVENOX SUB-Q SCH (10:15)
[2018-09-06] MEDS: ZESTRIL PO SCH (10:15)
--- NOTE | 2018-09-06 11:35 | Consultation ---
History of Present Illness Consult date: 09/06/18 Requesting physician: ERICK KISER Reason for consult: other (Sleep apnea) History of present illness: 62 y/o morbidly obese male admitted with CHF exacerbation and shortness of breath. Patient with known sleep apnea and is suppose to be on CPAP but has not been for years. Consulted by [facility] for sleep apnea. Patient sleeps on 3 pillows nightly. He has not had a sleep study in the last year and has not had one for likely over 5 years as he cannot remember. He readily admits noncompliance with therapy. Past History Past Medical History: heart failure, hypertension, renal failure, other (DONOVAN and morbid obesity) Past Surgical History: No surgical history Social history: no significant social history, lives with family Family history: no significant family history Medications and Allergies Allergies Allergy/AdvReac Type Severity Reaction Status Date / Time shellfish derived AdvReac Severe RESPIRATORY Verified 12/09/14 23:39 DISTRESS seafood Allergy Severe Angioedema Uncoded 09/04/18 00:15 Home Medications Medication Instructions Recorded Confirmed Last Taken Type Furosemide [Lasix TAB] 40 mg PO BID 12/09/14 09/04/18 12/09/14 History Active Meds: Active Medications Aspirin (Baby Aspirin) 81 mg PO QDAY [facility] Last Admin: 09/06/18 10:15 Dose: 81 mg Documented by: Enoxaparin Sodium (Lovenox) 40 mg SUB-Q QDAY [facility] Last Admin: 09/06/18 10:15 Dose: 40 mg Documented by: Furosemide (Lasix) 40 mg PO QDAY [facility] Last Admin: 09/06/18 10:20 Dose: 40 mg Documented by: Hydralazine HCl (Apresoline) 10 mg IV Q4H PRN PRN Reason: Hypertension Last Admin: 09/05/18 03:24 Dose: 10 mg Documented by: Lisinopril (Zestril) 2.5 mg PO QDAY [facility] Last Admin: 09/06/18 10:15 Dose: 2.5 mg Documented by: Metoprolol Tartrate (Lopressor) 25 mg PO BID@0800,1700 [facility] Last Admin: 09/06/18 08:32 Dose: 25 mg Documented by: Nitroglycerin (Nitrostat) 0.4 mg SL .Q5MIN PRN PRN Reason: Chest Pain Pantoprazole Sodium (Protonix) 40 mg PO QDAY [facility] Last Admin: 09/06/18 10:15 Dose: 40 mg Documented by: Promethazine HCl/Codeine (Phenergan/Codeine 6.25-10 Mg/5ml) 5 ml PO Q12HR PRN PRN Reason: Cough Last Admin: 09/06/18 09:11 Dose: 5 ml Documented by: Review of Systems All systems: negative Physical Examination Vital signs: Vital Signs Pulse Resp BP Pulse Ox 82 29 H 132/76 94 09/03/18 22:11 09/03/18 22:11 09/03/18 22:11 09/03/18 22:11 General appearance: no acute distress, alert Eyes: non-icteric ENT: oropharynx moist Neck: supple, other (extremely large in circumference) Effort: normal Ascultation: Bilateral: diminished breath sounds (secondary to body habitus) Percussion: Bilateral: not dull Tactile fremitus: Bilateral: normal Cardiovascular: regular rate and rhythm Gastrointestinal: normoactive bowel sounds Results - Laboratory Findings CBC and BMP: 09/03/18 17:26 09/04/18 01:09 PT/INR, D-dimer 447.59 ng/mlDDU (0-234) H 09/04/18 05:38 Abnormal lab findings: Abnormal Labs 09/03/18 09/03/18 09/04/18 17:07 17:26 05:38 MCV 96 H Lymph % (Auto) 12.3 L Seg Neutrophils % 80.1 H Seg Neutrophils # 8.2 H D-Dimer 447.59 H Albumin 3.2 L - Diagnostic Findings Chest x-ray: image reviewed (cardiomegaly with increased pulmonary vascular congestion) Assessment and Plan 62 y/o morbidly obese male with untreated DONOVAN and noncompliance with therapy. 1. DONOVAN is not worked up or treated as an inpatient disease. Will not order nocturnal CPAP here as patient needs an overnight study. Will arrange this as an outpatient. 2. All others per primary team and consultants. 3. Will sign off, call if questions.
--- NOTE | 2018-09-06 11:41 | Progress Note ---
Assessment and Plan Chronic Diastolic heart failure EF 60-65% by echo this admission Morbidly obese Obstructive sleep apnea on home CPAP Diabetes Hypertension Continue medical management for chronic diastolic heart failure. Stable cardiac sanford. Patient advised to f/u with Dr Kee within 5-7 days of discharge. Subjective Date of service: 09/06/18 Interval history: Patient reports he is feeling better. Lower extremity edema has resolved. Objective Vital Signs Temp Pulse Pulse Resp BP Pulse Ox 09/06/18 10:15 64 148/83 09/06/18 08:32 81 158/109 09/06/18 08:27 97.6 F 71 18 158/109 98 09/06/18 04:44 98.0 F 71 20 132/78 93 09/05/18 23:32 98.0 F 70 18 119/59 84 09/05/18 22:35 67 18 95 09/05/18 21:30 100 09/05/18 19:51 97.0 F L 67 18 134/75 95 09/05/18 19:42 72 09/05/18 17:59 78 141/71 09/05/18 16:03 98.0 F 58 L 18 106/49 100 09/05/18 12:05 98.2 F 64 20 146/91 99 - Physical Examination General: No Apparent Distress, Other (obese) HEENT: Positive: PERRL Cardiac: Positive: Reg Rate and Rhythm Lungs: Positive: Decreased Breath Sounds Neuro: Positive: Grossly Intact Abdomen: Positive: Soft Extremities: Absent: edema
--- NOTE | 2018-09-06 17:01 | Discharge Summary ---
Providers - Providers Date of Admission: 09/03/18 23:25 Date of discharge: 09/06/18 Attending physician: ERICK KISER 09/04/18 00:42 Consult to Physician [CONS] Routine Comment: Consulting Provider: ANTONINA LAWS Physician Instructions: Reason For Exam: CHF 09/05/18 15:56 Consult to Physician [CONS] Routine Comment: Consulting Provider: SERJIO CABALLERO Physician Instructions: Reason For Exam: sleep apnea Primary care physician: SUPERVISOR FELTING Hospitalization Condition: Fair Hospital course: Patient is a 62-year-old male with CHF, chronic kidney disease, obstructive sleep apnea, hypertension, morbid obesity who presented to the Emergency Deprtment with complaints of cough, shortness of breath and leg swelling. P atient stated that the symptoms has been going on for the past 2 months, and he stopped taking Losartan because of malignancy reports in the news. he was seen and valuated in Emergency Department. He was diagnosed with acute respiratory failure due to acute on chronic diatolic CHF. He was started on Lasix iv, supplemental Oxygen and admitted. Cardiology and Pulmonology were consulted and he was evaluated. he improved symptomatically. D-dimer was elevated but could not do CT angio because of allergy. Doppler US lower ext was negative. He was re-evaluated on 09/06/18, vitals sstable and was discharged home. Total time spent on discharge, 35 mins Disposition: DC-01 TO HOME OR SELFCARE - Discharge Diagnoses (1) Acute respiratory failure Status: Acute (2) Acute on chronic diastolic heart failure Status: Acute (3) Morbid obesity Status: Acute (4) Morbid obesity with BMI of 60.0-69.9, adult Status: Acute (5) Noncompliance with CPAP treatment Status: Acute (6) Shortness of breath Status: Acute (7) Sleep apnea Status: Acute Core Measure Documentation - Palliative Care Palliative Care/ Comfort Measures: Not Applicable - Core Measures Any of the following diagnoses?: heart failure - Heart Failure Discharge Requirements REBECCA/ARB for LVSD if EF <40%: Not Applicable Beta gabriel at discharge: Yes Exam - Constitutional Vitals: Temp Pulse Resp BP Pulse Ox 97.6 F 64 18 148/83 94 09/06/18 08:27 09/06/18 10:15 09/06/18 10:00 09/06/18 10:15 09/06/18 13:52 Plan Activity: advance as tolerated Diet: low fat, low cholesterol, low salt Additional Instructions: 1.Follow up with PCP in 1 week. 2.Follow up with Dr. Kee, cardiology in 5-7 days. 3.Follow up with Dr. Mcallister Pul in 1 week. 4.Use CPAP every night Follow up with: PRIMARY CARE, [Primary Care Provider] - 3-5 Days Prescriptions: Furosemide [Lasix TAB] 40 mg PO QDAY #30 tablet Metoprolol [Lopressor TAB] 25 mg PO BID #60 tablet Lisinopril [Zestril TAB] 2.5 mg PO QDAY #30 tablet
[2018-09-06 17:25] VITALS: BP 131/75
== END 2018-09-06 19:08 | disposition home or self-care (01) | DRG 291 ==
LOC: ED 16:45 → 4A 23:25
PROVIDERS: ADMIT Internal Medicine; ATTEND Internal Medicine
DX: I11.0 Hypertensive heart disease with heart failure (principal); J96.00 Acute respiratory failure, unspecified whether with hypoxia or hypercapnia; Z68.44 Body mass index [BMI] 60.0-69.9, adult; I50.33 Acute on chronic diastolic (congestive) heart failure; I25.10 Atherosclerotic heart disease of native coronary artery without angina pectoris; E66.01 Morbid (severe) obesity due to excess calories; K21.9 Gastro-esophageal reflux disease without esophagitis; G47.33 Obstructive sleep apnea (adult) (pediatric); Z91.013 Allergy to seafood; Z90.89 Acquired absence of other organs; Z91.19 Patient's noncompliance with other medical treatment and regimen
CPT/HCPCS: 36415; 71046; 80048; 80053; 82962; 83735; 83880; 84484; 85025; 85379; 93005; 93010; 93306; 93970; 94760; G0378; J0360; J1650; J1940